=== PATIENT | male | born 1995 | race Caucasian/White ===

== ENCOUNTER 2019-09-30 14:54 | Emergency (ER) | payer OTHER ==
[2019-09-30] MEDS ORDERED: Proparacaine 0.5% Opth 15 ML BOT ONE (15:49)
[2019-09-30] MEDS ORDERED: Fluorescein Opthalmic Strip ONE (15:49)
== END 2019-09-30 16:16 | disposition home or self-care (01) ==
LOC: ERS 14:54
DX: S05.02XA Injury of conjunctiva and corneal abrasion without foreign body, left eye, initial encounter (principal); X58.XXXA Exposure to other specified factors, initial encounter
CPT/HCPCS: 99283